=== PATIENT | female | born 1980 | race Caucasian/White ===

== ENCOUNTER → 2017-05-05 | Outpatient (CLI) | payer OTHER ==
--- NOTE | 2017-05-05 16:13 | DI ---
XR KNEE CMPT 4 OR MORE VWS,05/05/2017 3:34 PM: Clinical History: Left knee pain of unspecified chronicity. Previous Exam: None at this facility. Findings: 4 views the left knee are obtained, and demonstrate anatomic alignment without fractures. The surroun ding soft tissues are unremarkable. Impression: Normal left knee.
== END ==
LOC: ORTHO 15:52
PROVIDERS: ATTEND Orthopaedic Surgery
DX: M25.562 Pain in left knee (principal); S83.32XD Tear of articular cartilage of left knee, current, subsequent encounter
CPT/HCPCS: 73564

== ENCOUNTER → 2017-05-23 | Outpatient (CLI) | payer OTHER ==
[2017-05-23 14:10] LABS: BILIRUBIN,URINE NEGATIVE (NEG); CLARITY,URINE CLEAR (CLEAR); COLOR,URINE YELLOW; GLUCOSE, URINE (UA) NEGATIVE (NEG); NITRATE,URINE NEGATIVE (NEG); OCCULT BLOOD,URINE NEGATIVE (NEG); PROTEIN,URINE NEGATIVE (NEG); UROBILINOGEN,URINE 0.2 mg/dL (0.2)
[2017-05-23 14:17] LABS: BACTERIA,URINE FEW; RBC,URINE 0-3 /hpf; SQUAMOUS EPITHELIAL CELL,UR RARE; URINE SAMPLE TYPE CLEAN CATCH URINE
== END ==
LOC: MOB LAB 11:13
PROVIDERS: ATTEND Physician Assistant Medical
DX: N30.00 Acute cystitis without hematuria (principal); R30.0 Dysuria; R39.15 Urgency of urination
CPT/HCPCS: 81001; 87077; 87088; 87186